=== PATIENT | male | born 1950 | race Hispanic/Latino ===

== ENCOUNTER 2018-04-25 19:44 | Emergency (ER) | payer OTHER ==
[2018-04-25] MEDS ORDERED: TETANUS & DIPHTHERIA TOX,ADULT 0.5 ML VIAL ONE (21:57)
[2018-04-25] MEDS ORDERED: LIDOCAINE 1% MPF 30 ML VIAL ONE (23:29)
[2018-04-25] MEDS ORDERED: LIDOCAINE 1% MPF 5 ML VIAL ONE (23:29)
--- NOTE | 2018-04-25 23:44 | ER ---
Nurse's Notes [facility] Name: Ousmane Su Age: 68 yrs Sex: Male : 1950 Arrival Date: 04/25/2018 Time: 19:45 Bed 23 Private MD: Jose Roberto Riggs V Diagnosis: Laceration without foreign body of other part of head Presentation: 04/25 19:58 Presenting complaint: Patient states: "I fell out bed today" When he fell he hit his 1 left eye and it bled for a little bit and he also hurt his left knee. Reports that this happened at 1600 today. Laceration noted to left upper eye area, no longer bleeding. Patient denies taking blood thinners, denies LOC, denies vomiting. Transition of care: patient was not received from another setting of care. Onset of symptoms was April 25, 2018 at 16:00. Risk Assessment: Do you want to hurt yourself or someone else? Patient reports no desire to harm self or others. Initial Sepsis Screen: Does the patient meet any 2 criteria? No. Patient's initial sepsis screen is negative. Does the patient have a suspected source of infection? No. Patient's initial sepsis screen is negative. Care prior to arrival: None. 19:58 Method Of Arrival: Wheelchair [facility] 19:58 Acuity: CODIE 3 aj1 20:01 Mechanism of Injury: Fall out of bed. Trauma event details: Injury occurred in the [address] Triage Assessment: 19:59 General: Appears in no apparent distress. uncomfortable, Behavior is calm, cooperative, aj1 appropriate for age. Pain: Complains of pain in left eye and left knee Pain currently is 1 out of 10 on a pain scale. Neuro: Level of Consciousness is awake, alert, obeys commands. Cardiovascular: Patient's skin is warm and dry. Respiratory: Airway is patent Respiratory effort is even, unlabored, Respiratory pattern is regular, symmetrical. Trauma Activation: Not Applicable Physician: ED Physician; Name: ; Notified At: ; Arrived At: Physician: General Surgeon; Name: ; Notified At: ; Arrived At: Physician: Radiology; Name: ; Notified At: ; Arrived At: Physician: Respiratory; Name: ; Notified At: ; Arrived At: Physician: Lab; Name: ; Notified At: ; Arrived At: Historical: - Allergies: 19:59 No Known Allergies; aj1 - Home Meds: 19:59 carbidopa-levodopa 25-250 mg Oral tab 1 tab 6 times a day [Active]; colchicine 0.6 mg aj1 Oral cap 1 cap 2 times per day [Active]; losartan 100 mg Oral tab 1 tab once daily [Active]; Mirapex 1.5 mg Oral tab 1 tab [Active]; - PMHx: 19:59 Hypertension; Parkinsons; aj1 20:01 deep brain stimulator; colostomy; aj1 - PSHx: 19: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 - Social history:: Smoking status: Patient/guardian denies using tobacco. - Immunization history: Last tetanus immunization: unknown. - Ebola Screening: : Patient denies travel to an Ebola-affected area in the 21 days before illness onset. Screenin:01 Abuse screen: Denies threats or abuse. Denies injuries from another. Tuberculosis aj1 screening: No symptoms or risk factors identified. 21:05 Nutritional screening: No deficits noted. Fall Risk Fall in past 12 months (25 points). ca1 Secondary diagnosis (15 points) impaired mobility, Ambulatory Aid- Crutches/Cane/Walker (15 pts). Gait- Impaired (20 pts.). Primary Survey: 20:01 NO uncontrolled hemorrhage observed. A: The patient is alert. Breathing/Chest: aj1 Respiratory pattern: regular, Respiratory effort: spontaneous, unlabored. Circulation: Skin color: pink. Disability Alert. Exposure/Environment:. Assessment: 21:05 General: Appears in no apparent distress. Behavior is calm, cooperative, appropriate ca1 for age. Pain: Complains of pain in left leg and left eye and left knee Pain does not radiate. Pain currently is 2 out of 10 on a pain scale. Pain began 4 hours ago. Neuro: Level of Consciousness is awake, alert, obeys commands, Oriented to person, place, time, situation. Cardiovascular: Heart tones S1 S2 present Capillary refill < 3 seconds Patient's skin is warm and dry. Respiratory: Airway is patent Respiratory effort is even, unlabored, Breath sounds are clear bilaterally. GI: No deficits noted. No signs and/or symptoms were reported involving the gastrointestinal system. GI: Colostomy site is clean and dry. Ostomy appliance is intact. GI: : No deficits noted. No signs and/or symptoms were reported regarding the genitourinary system. EENT: No deficits noted. No signs and/or symptoms were reported regarding the EENT system. Derm: Skin is healthy with good turgor, Skin is pink, warm \\T\\ dry. Musculoskeletal: Capillary refill < 3 seconds, Range of motion: limited in all extremities. Musculoskeletal:. Injury Description: Bruise sustained to left knee is purple, was sustained 4-6 hours ago. Laceration sustained to outer aspect of left eyebrow is clean, 0.5 to 2.5 cm long, not bleeding, was sustained 4-6 hours ago. no active bleeding noted at this time. 22:14 Reassessment: Patient appears in no apparent distress at this time. Patient and/or ca1 family updated on plan of care and expected duration. Pain level reassessed. Patient is alert, oriented x 3, equal unlabored respirations, skin warm/dry/pink. 23:15 Reassessment: Patient appears in no apparent distress at this time. ca1 Vital Signs: 20:01 BP 180 / 89; Pulse 74; Resp 18; Temp 97.8; Pulse Ox 97% on R/A; Weight 83.46 kg (R); aj1 Height 5 ft. 8 in. (172.72 cm) (R); Pain 1/10; 21:05 BP 162 / 76; Pulse 74; Resp 19; Pulse Ox 100% on R/A; ca1 22:00 BP 172 / 77; Pulse 73; Resp 19; Pulse Ox 99% on R/A; ca1 22:53 BP 172 / 84; Pulse 73; Resp 19; Pulse Ox 100% on R/A; ca1 23:15 BP 167 / 81; Pulse 71; Resp 19; Pulse Ox 100% on R/A; ca1 20:01 Body Mass Index 27.98 (83.46 kg, 172.72 cm) aj1 Vidhya Coma Score: 20:01 Eye Response: spontaneous(4). Verbal Response: oriented(5). Motor Response: obeys aj1 commands(6). Total: 15. Trauma Score (Adult): 20:01 Eye Response: spontaneous(1); Verbal Response: oriented(1); Motor Response: obeys aj1 commands(2); Systolic BP: > 89 mm Hg(4); Respiratory Rate: 10 to 29 per min(4); Vidhya Score: 15; Trauma Score: 12 ED Course: 19:45 Patient arrived in ED. as 19:46 Jose Roberto Riggs MD is Private Physician. as 19:59 Triage completed. aj1 20:01 Arm band placed on Patient placed in waiting room, Patient notified of wait time. aj1 20:01 Patient has correct armband on for positive identification. Bed in low position. Call aj1 light in reach. Side rails up X 1. 20:01 Patient maintains SpO2 saturation greater than 95% on room air. aj1 21:03 Eber Sanz MD is Attending Physician. gs 21:05 Pulse ox on. NIBP on. Warm blanket given. ca1 21:09 Cira Joe RN is Primary Nurse. ca1 22:09 X-ray completed. Portable x-ray completed in exam room. Patient tolerated procedure ml well. 22:11 Humerus Left XRAY In Process Unspecified. EDMS 22:11 Hip Left 2 View XRAY In Process Unspecified. EDMS 23:30 Assist provider with laceration repair on left eye that was between 2.6 to 7.5 cm using ca1 sutures. Set up tray. Performed by Eber Sanz MD Dressed with 4X4s, Patient tolerated well. 23:57 Patient did not have IV access during this emergency room visit. ca1 Administered Medications: 10:05 Drug: Tetanus-Diphtheria Toxoid Adult 0.5 ml {Asphalt Tamper: [employer]. Exp: ca1 03/28/2020. Lot #: [id number]. } Route: IM; Site: right deltoid; 23:34 Follow up: Response: No adverse reaction ca1 23:30 Drug: Lidocaine-Epinephrine -1%: (1:100,000) 5 ml {Note: Administered by Dr. Sanz.} ca1 Volume: 20 ml; Route: Infiltration; Outcome: 23:44 Discharge ordered by . gs 23:58 Discharged to home via wheelchair, with family. ca1 23:58 Condition: stable 23:58 Discharge instructions given to patient, family, Instructed on discharge instructions, follow up and referral plans. Demonstrated understanding of instructions, follow-up care. 23:59 Patient left the ED. ca1 Signatures: Dispatcher [employer] EDMS Sho Solitario RN RN aj1 Tesha Guevara Melissa ml Starr, Gregory, MD MD gs Cira Joe, RN RN ca1
--- NOTE | 2018-04-25 23:44 | EDPHYS ---
Physician Documentation [facility] Name: Ousmane Su Age: 68 yrs Sex: Male : 1950 Arrival Date: 04/25/2018 Time: 19:45 Bed 23 Private MD: Jose Roberto Riggs V ED Physician Eber Sanz HPI: 04/25 23:37 This 68 yrs old Male presents to ER via Wheelchair with complaints of Fall gs Injury, Knee Pain. 23:37 Details of fall: The patient fell from seated position. Onset: The symptoms/episode gs began/occurred acutely, just prior to arrival. Associated injuries: The patient sustained injury to the head, laceration, left arm and left leg. Severity of symptoms: At their worst the symptoms were moderate, in the emergency department the symptoms are unchanged. The patient has experienced similar episodes in the past, a few times. The patient has not recently seen a physician. 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 - Social history:: Smoking status: Patient/guardian denies using tobacco. - Immunization history: Last tetanus immunization: unknown. - Ebola Screening: : Patient denies travel to an Ebola-affected area in the 21 days before illness onset. ROS: 23:37 All other systems are negative. gs Exam: 23:37 Eyes: Pupils equal round and reactive to light, extra-ocular motions intact. Lids and gs lashes normal. Conjunctiva and sclera are non-icteric and not injected. Cornea within normal limits. Periorbital areas with no swelling, redness, or edema. ENT: Nares patent. No nasal discharge, no septal abnormalities noted. Tympanic membranes are normal and external auditory canals are clear. Oropharynx with no redness, swelling, or masses, exudates, or evidence of obstruction, uvula midline. Mucous membranes moist. Neck: Trachea midline, no thyromegaly or masses palpated, and no cervical lymphadenopathy. Supple, full range of motion without nuchal rigidity, or vertebral point tenderness. No Meningismus. Chest/axilla: Normal chest wall appearance and motion. Nontender with no deformity. No lesions are appreciated. Cardiovascular: Regular rate and rhythm with a normal S1 and S2. No gallops, murmurs, or rubs. Normal PMI, no JVD. No pulse deficits. Respiratory: Lungs have equal breath sounds bilaterally, clear to auscultation and percussion. No rales, rhonchi or wheezes noted. No increased work of breathing, no retractions or nasal flaring. Abdomen/GI: Soft, non-tender, with normal bowel sounds. No distension or tympany. No guarding or rebound. No evidence of tenderness throughout. Back: No spinal tenderness. No costovertebral tenderness. Full range of motion. Skin: Warm, dry with normal turgor. Normal color with no rashes, no lesions, and no evidence of cellulitis. Neuro: Awake and alert, GCS 15, oriented to person, place, time, and situation. Cranial nerves II-XII grossly intact. Motor strength 5/5 in all extremities. Sensory grossly intact. Cerebellar exam normal. Normal gait. 23:37 Constitutional: The patient appears alert, awake. 23:37 Head/face: Noted is a laceration(s), that is superficial, of the outer aspect of left eyebrow. 23:37 Musculoskeletal/extremity: Extremities: noted in the left tricep: tenderness, noted in the left knee: ROM: no acute changes, Perfusion: the patient is normally perfused throughout. Vital Signs: 20:01 BP 180 / 89; Pulse 74; Resp 18; Temp 97.8; Pulse Ox 97% on R/A; Weight 83.46 kg (R); aj1 Height 5 ft. 8 in. (172.72 cm) (R); Pain /; 21:05 BP 162 / 76; Pulse 74; Resp 19; Pulse Ox 100% on R/A; ca1 22:00 BP 172 / 77; Pulse 73; Resp 19; Pulse Ox 99% on R/A; ca1 22:53 BP 172 / 84; Pulse 73; Resp 19; Pulse Ox 100% on R/A; ca1 23:15 BP 167 / 81; Pulse 71; Resp 19; Pulse Ox 100% on R/A; ca1 20:01 Body Mass Index 27.98 (83.46 kg, 172.72 cm) aj1 Vidhya Coma Score: 20:01 Eye Response: spontaneous(4). Verbal Response: oriented(5). Motor Response: obeys aj1 commands(6). Total: 15. Trauma Score (Adult): 20:01 Eye Response: spontaneous(1); Verbal Response: oriented(1); Motor Response: obeys aj1 commands(2); Systolic BP: > 89 mm Hg(4); Respiratory Rate: 10 to 29 per min(4); [place] Score: 15; Trauma Score: 12 Laceration: 23:37 Wound Repair of 2.5cm ( 1.0in ) subcutaneous laceration to outer aspect of left gs eyebrow. Distal neuro/vascular/tendon intact. Anesthesia: Local anesthetic administered with 2 mls of 1% lidocaine. Wound prep: Simple cleansing with betadine. Skin closed with 3 5-0 Prolene using simple sutures and sterile technique. Patient tolerated well. MDM: 21:35 Patient medically screened. 23:37 Differential diagnosis: contusion, fracture, laceration. Data reviewed: vital signs, nurses notes, radiologic studies. Response to treatment: the patient's symptoms have markedly improved after treatment, and as a result, I will discharge patient. 04/25 21:35 Order name: Humerus Left XRAY 04/25 21:35 Order name: Hip Left 2 View XRAY Administered Medications: 10:05 Drug: Tetanus-Diphtheria Toxoid Adult 0.5 ml {Car [employer]ocker: [email or web address]. Exp: ca1 03/28/2020. Lot #: [id number]. } Route: IM; Site: right deltoid; 23:34 Follow up: Response: No adverse reaction ca1 23:30 Drug: Lidocaine-Epinephrine -1%: (1:100,000) 5 ml {Note: Administered by Dr. Sanz.} ca1 Volume: 20 ml; Route: Infiltration; Disposition: 04/25/18 23:44 Discharged to Home. Impression: Laceration without foreign body of other part of head. - Condition is Stable. - Discharge Instructions: Laceration Care, Adult, [id number]. - Medication Reconciliation Form, Thank You Letter, Antibiotic Education, Prescription Opioid Use form. - Follow up: Private Physician; When: 1 week; Reason: Staple/Suture removal. Signatures: Dispatcher [employer] Sho Cesar RN RN aj1 Eber Sanz MD MD gs Tatyana, KIYA Denis RN ca1 Corrections: (The following items were deleted from the chart) 23:59 23:44 04/25/2018 23:44 Discharged to Home. Impression: Laceration without foreign body ca1 of other part of head. Condition is Stable. Forms are Medication Reconciliation Form, Thank You Letter, Antibiotic Education, Prescription Opioid Use. Follow up: Private Physician; When: 1 week; Reason: Staple/Suture removal. gs
[2018-04-26 01:11] VITALS: TEMP 97.8
[2018-04-26 01:14] VITALS: O2SAT 100
[2018-04-26 01:15] VITALS: BP 167/81
--- NOTE | 2018-04-26 08:08 | RAD REPORT ---
EXAM DESCRIPTION: RAD - Humerus Left - 04/25/2018 10:14 pm CLINICAL HISTORY: Fall, left arm and shoulder pain COMPARISON: None. FINDINGS: No fracture is identified. There is no dislocation or periosteal reaction noted. Moderate AC joint degenerative changes are present. Small spur projects from the acromion. There is additiona l degenerative change along the undersurface of the acromion with small spurs an accessory calcificat ion in the soft tissues adjacent to the lateral margin of the acromion. The acromial humeral joint sp vee is narrowed. Chronic rotator cuff tear would be a consideration. More distally the shaft of the l eft humerus and at the elbow joint show no suspicious findings. There is a large spur projecting from the posterior margin of the olecranon. No air or foreign body in the soft tissues. IMPRESSION: Moderately prominent left shoulder degenerative change. No fractures identified. Dislocation is not suspected.
--- NOTE | 2018-04-26 08:09 | RAD REPORT ---
EXAM DESCRIPTION: RAD - Hip Left 2 View - 04/25/2018 10:14 pm CLINICAL HISTORY: Fall, left hip pain, pelvic pain COMPARISON: None. FINDINGS: AP and frogleg views of the left hip were obtained. There is no fracture or dislocation. N o acute or destructive bony process seen. No AVN or focal femoral head abnormality. No periarticular mass or hematoma identifiable. Patient has prominent lower lumbar degenerative change only partially imaged. SI joint degenerative c hange is mild. IMPRESSION: Negative left hip examination for acute or significant findings. Little hip joint degen erative change identified.
== END 2018-04-25 23:59 | disposition home or self-care (01) ==
LOC: ER 19:44
PROC: 0JQ10ZZ Repair Face Subcutaneous Tissue and Fascia, Open Approach (ICD-10-PCS; principal; 2018-04-25)
DX: S01.112A Laceration without foreign body of left eyelid and periocular area, initial encounter (principal); W19.XXXA Unspecified fall, initial encounter; Y93.9 Activity, unspecified; Y92.9 Unspecified place or not applicable; Z23 Encounter for immunization; I10 Essential (primary) hypertension; G20 Parkinson's disease
CPT/HCPCS: 90714; 99284